=== PATIENT | male | born 1955 | race Caucasian/White ===

== ENCOUNTER → 2023-10-30 07:20 | Outpatient (REF) | payer OTHER, SELFPAY | LOC: RAD 07:20 | PROVIDERS: ATTENDING PHYSICIAN Internal Medicine Critical Care Medicine; FAMILY PHYSICIAN Family Medicine | DX: R91.1 Solitary pulmonary nodule (principal) | CPT/HCPCS: 71046 ==

== ENCOUNTER → 2024-05-13 15:24 | Outpatient (REF) | payer OTHER, SELFPAY | LOC: RAD 15:24 | PROVIDERS: ATTENDING PHYSICIAN Thoracic Surgery (Cardiothoracic Vascular Surgery); FAMILY PHYSICIAN Family Medicine; OTHER PHYSICIAN Internal Medicine Critical Care Medicine | DX: I71.20 Thoracic aortic aneurysm, without rupture, unspecified (principal) | CPT/HCPCS: 71275; Q9967 ==